=== PATIENT | female | born 1955 | race Caucasian/White ===

== ENCOUNTER 2019-12-22 14:10 | Emergency (ER) | payer MEDICAID ==
[~2019-12-22] VITALS: Ht 162.6 cm; Wt 68.2 kg
[2019-12-22 14:12] VITALS: BP 153/101
== END 2019-12-22 14:51 | disposition home or self-care (01) ==
LOC: ER 14:11
DX: R05 Cough (principal); R51 Headache; R50.9 Fever, unspecified; M79.10 Myalgia, unspecified site; I50.9 Heart failure, unspecified; J45.909 Unspecified asthma, uncomplicated
CPT/HCPCS: 99281